=== PATIENT | female | born 1965 ===

== ENCOUNTER → 2018-05-17 | Outpatient (CLI) | payer OTHER ==
[~2018-05-17] MED LIST: SERT-173 PO
[2018-05-17 09:33] LABS: PLATELET COUNT, AUTOMATED 269 K/uL (150-450)
[2018-05-17 09:58] LABS: LDL CHOLESTEROL 143 mg/dl
== END ==
LOC: LAB 08:49
PROVIDERS: ATTEND Internal Medicine
DX: F41.9 Anxiety disorder, unspecified (principal); R03.0 Elevated blood-pressure reading, without diagnosis of hypertension; R21 Rash and other nonspecific skin eruption
CPT/HCPCS: 36415; 81001; 82040; 82247; 82310; 82374; 82435; 82465; 82565; 82947; 83718; 84075; 84132; 84155; 84295; 84443; 84450; 84460; 84478; 84520; 85025